=== PATIENT | female | born 1950 | race Caucasian/White ===

== ENCOUNTER 2019-01-19 02:55 | Observation (INO) | payer MEDICARE, BC ==
[2016-12-19 09:57] VITALS: Ht 162.6 cm; Wt 95.7 kg
[~2019-01-19] VITALS: Ht 162.6 cm; Wt 95.7 kg
[2019-01-19] VITALS (12 sets, daily range): BP systolic 115–182; BP diastolic 67–101
[~2019-01-19 02:55] MED LIST: ACE650S PO; ASPI-1471 PO; ASPI-757 PO; ATEN-1 PO; CELE-1 PO; CHOL100058 PO; CYA1000 PO; DIA5 PO; DYA PO; ENO40I SQ; ENOX40DI8 SQ; ESOM20CA31 PO; ESOM40CA42 PO; EST3 PO; ESTR-33 PO; FERG324 PO; FEXO-67 PO; FISH OIL1 CAP PO; FLUT1AER INH; GARL1CAP11 PO; HYDR-318 PO; IBUP-1455 PO; IBUP-1687 PO; LIS10 PO; LOR7.5/325 PO; LOSA25TA57 PO; LUTE1CAP4 PO; MEC125 PO; MED25 PO; MEDR2.5T29 PO; MELO-205 PO; METH-280 PO; MOM PO; MULT-820 PO; MULT1TAB64 PO; NEBI10TA4 PO; OCU PO; OMEP-125 PO; OSTEO BIFLEX; PER PO; POTA99TA6 PO; SPIR50TA30 PO; TRIA1CAP85 PO; [UNRECOGNIZED DRUG - CODE] PO
[2019-01-19] MEDS ORDERED: ceFAZolin(*) 2GM/D5W 50ML 50 ML IVPB ONE (06:00)
[2019-01-19] MEDS ORDERED: LIDOCAINE/SOD BICARB 8.4% SYR ID ONE (06:00)
[2019-01-19] MEDS ORDERED: NORMOSOL R SOLN(*) 1000 ML BAG 1,000 ML IV PRN (06:00)
[2019-01-19] MEDS ORDERED: MIDAZOLAM 2 MG/2 ML VIAL IVP PRN (06:00)
[2019-01-19] MEDS ORDERED: fentaNYL CITR 250 MCG/5 ML AMP ONE (10:09)
[2019-01-19] MEDS ORDERED: PROPOFOL EMUL(*) 10MG/ML 20 ML 20 ML ONE (10:10)
[2019-01-19] MEDS ORDERED: LIDOCAINE MPF 1% 5 ML VIAL ONE (10:10)
[2019-01-19] MEDS ORDERED: ONDANSETRON 4 MG/2 ML VIAL ONE (10:10)
[2019-01-19] MEDS ORDERED: DEXAMETHASONE SOD PHOS 10MG/ML ONE (10:10)
[2019-01-19] MEDS: ACETAMINOPHEN 500 MG TAB PO ONE ×2 (10:25→10:29)
[2019-01-19] MEDS: PREGABALIN 150 MG CAPSULE PO ONE ×2 (10:25→10:29)
[2019-01-19] MEDS ORDERED: KETAMINE HCL 200 MG/20 ML MDV ONE (11:36)
[2019-01-19] MEDS ORDERED: SUGAMMADEX SOD 200 MG/2 ML SDV ONE (13:00)
[2019-01-19] MEDS ORDERED: ROCURONIUM BROM 10 MG/ML 5 ML ONE (14:54)
[2019-01-19] MEDS ORDERED: LABETALOL HCL 25 MG/5 ML SYRINGE ONE (15:14)
[2019-01-19] MEDS ORDERED: NS 0.9% IRRIGATION 1000ML PLCT IR ONE (15:25)
[2019-01-19] MEDS ORDERED: PROPOFOL(*)1000 MG/100 ML VIAL 100 ML ONE (15:34)
[2019-01-19] MEDS ORDERED: NS(*) 0.9% 100 ML BAG 100 ML ONE (15:43)
[2019-01-19] MEDS ORDERED: fentaNYL CITR 100 MCG/2 ML AMP ONE ×2 (16:27→17:36)
[2019-01-19] MEDS ORDERED: hydrALAZINE HCL 20 MG/ML VIAL ONE (16:46)
[2019-01-19] MEDS ORDERED: MEPERIDINE HCL 50 MG/ML SDV 50 MG/ML VIAL ONE (17:15)
--- NOTE | 2019-01-19 17:18 | RADIOLOGY IMAGING REPORT ---
FACILITY: [facility] PATIENT NAME: Courtney Mcdermott : 1950 MR: [id number] V: [id number] EXAM DATE: ORDERING PHYSICIAN: REY ROLLINS TECHNOLOGIST: Location: [facility] [place] Patient: Courtney Mcdermott : 1950 Visit/Account:[id number] Date of Sevice: 01/19/2019 Exam type: L-SPINE >4 VIEWS History: L4-L5 DISC HERNIATION Comparison: MR lumbar spine May 14, 2018 Findings: A single cross table lateral intraoperative view of the lumbar spine demonstrates a metallic probe pr ojecting over the posterior spinous process of L4. Sponge marker projects immediately adjacent to th e probe on this intraoperative image. Incidentally noted are extensive spondylotic changes of the jace mbar spine. Incompletely imaged right hip arthroplasties. IMPRESSION: 1. As above Report Dictated By: Armida Loyd MD at 01/19/2019 5:12 PM Report E-Signed By: Armida Loyd MD at 01/19/2019 5:14 PM WSN:[email or web address]
[2019-01-19] MEDS ORDERED: ONDANSETRON 4 MG/2 ML VIAL IVP PRN (18:05)
[2019-01-19] MEDS ORDERED: DIAZEPAM 5 MG TAB PO PRN (18:05)
[2019-01-19] MEDS ORDERED: LR(*) 1000 ML BAG 1,000 ML IV PRN (18:05)
[2019-01-19] MEDS ORDERED: ACETAMINOPHEN 500 MG TAB PO PRN (18:05)
[2019-01-19] MEDS ORDERED: diphenhydrAMINE 25 MG CAP PO PRN (18:05)
[2019-01-19] MEDS ORDERED: oxyCODONE HCL 5 MG CAP PO PRN (18:05)
[2019-01-19] MEDS ORDERED: MAGNESIUM HYDROXIDE* 30ML UDCP PO PRN (18:05)
[2019-01-19] MEDS ORDERED: BISACODYL 10 MG SUPP PR PRN (18:05)
[2019-01-19] MEDS ORDERED: APAP/HYDROCODONE 325/5 TAB PO PRN (18:05)
[2019-01-19] MEDS ORDERED: HYDROmorphone HCL 2 MG/ML SDV IVP PRN (18:05)
[2019-01-19] MEDS ORDERED: BENZOCAINE/MENTHOL 1 EACH LOZG PO PRN (18:05)
[2019-01-19] MEDS ORDERED: FLUSH 10 ML SYR IVP PRN (18:05)
[2019-01-19] MEDS ORDERED: ACETAMINOPHEN(*)1000 MG/100 ML 100 ML IVPB PRN (18:05)
[2019-01-19] MEDS ORDERED: VASOPRESSIN 20 UNIT/ML VIAL ONE (18:10)
[2019-01-19] MEDS ORDERED: PROPOFOL EMUL(*) 10MG/ML 20 ML 0 ML ONE (18:24)
--- NOTE | 2019-01-19 19:29 | Hospitalist Progress Note ---
Subjective Progress Notes Subjective Patient seen post-op. Reviewed PMHx (HTN) and medications (Bystolic, losartan). At persent she reports significant surgical site pain. She denies any CP/SOB. She has had some mild nausea. Physical Exam Vital Signs Date Time Temp Pulse Resp B/P (MAP) Pulse Ox O2 Delivery O2 Flow Rate FiO2 01/19/19 18:20 97.8 64 12 136/101 (113) 96 Nasal Cannula 3.0 General Appearance: Alert, Awake Cardiovascular: Regular Rate and Rhythm Respiratory: Clear to Auscultation Assessment and Plan Problems: (1) Hypertension Status: Chronic Assessment & Plan: Monitor BPs. Continue Bystolic and losartan with parameters. (2) GERD (gastroesophageal reflux disease) Status: Chronic Assessment & Plan: Continue PPI therapy. (3) MVP (mitral valve prolapse) Status: Chronic RAE MTZ MD Jan 19, 2019 19:29
[2019-01-19] MEDS: DOCUSATE SODIUM 100 MG CAP PO SCH (20:20)
[2019-01-19] MEDS: NEBIVOLOL HCL 5 MG TAB PO SCH (20:20)
[2019-01-19] MEDS ORDERED: NS(*) 0.9% 250 ML BAG 250 ML ONE (22:54)
[2019-01-19] MEDS: ceFAZolin(*) 2GM/D5W 50ML 50 ML IVPB SCH (22:56)
[2019-01-20] VITALS: BP 143/68
[2019-01-20 01:00] VITALS: BP 131/65
--- NOTE | 2019-01-20 05:26 | OPERATIVE REPORT 1 ---
EVENT DATE: January 19, 2019 SURGEON: Rigoberto Gonzales MD ANESTHESIOLOGIST: Zain Upton MD ANESTHESIA: General endotracheal anesthesia. TISSUE TECHNOLOGIST: Doc Ravi PA-C PREOPERATIVE DIAGNOSIS L4-L5 spinal stenosis with right greater than left leg pain and neurogenic claudication. POSTOPERATIVE DIAGNOSIS L4-L5 spinal stenosis with right greater than left leg pain and neurogenic claudication. PROCEDURE PERFORMED L4-L5 laminectomy. INTRAVENOUS FLUIDS 1200 mL. ESTIMATED BLOOD LOSS 80 mL. IMPLANTS None. SPECIMENS None. DRAINS None. COMPLICATIONS None. DISPOSITION Postanesthesia care unit. INDICATIONS FOR SURGERY Ms. Mcdermott is a 68-year-old female who is referred to me with bilateral buttock and radiating left greater than right leg pain. She had pain, numbness and tingling in the dorsal and plantar surfaces of the left foot, as well as radiating down the anterolateral aspect of the lower leg. She had a decreased walking tolerance secondary to heaviness and tiredness in her legs, and would walk leaning forward on a cart for some improvement. Physical therapy helped initially but then no longer, and she had multiple trials of injections, none of which gave her any sustained relief. Her physical examination was significant for normal strength and sensation, negative straight leg raising tests bilaterally, and intact sensation in all dermatomal distributions. Imaging studies included x-rays and an MRI that showed a slight anterolisthesis at L4 on L5 that was not mobile. There was facet hypertrophy, broad-based disc bulging and ligamentum flavum thickening resulting in bilateral lateral recess stenosis at L4-L5 and some foraminal stenosis at that level as well. Review of old records revealed that bilateral L5 epidural steroid injections gave the patient a couple of days' worth of complete relief of her symptoms. Secondary to ongoing symptoms and failure of nonsurgical care, Ms. Mcdermott was offered and elected to undergo L4-L5 laminectomy. Prior to surgery, I explained in detail to the patient the possible risks of surgery, including bleeding, infection, damage to surrounding structures, persistent and/or worsening pain, need for further surgery, spinal fluid leak, meningitis, nerve root injury, , blindness, sexual dysfunction, autonomic nervous system dysfunction, as well as other unforeseen medical and surgical complications. An understanding that in general, spinal surgery is more predictive at improving extremity discomfort than axial spine pain was stressed. DESCRIPTION OF PROCEDURE On the day of surgery, the patient was met in the preoperative hold area, and all questions were answered. The operative site was identified and marked by myself. The patient was brought in good condition to the operating room, and after succumbing to anesthesia, was positioned in the prone position on a Jax table. All bony protuberances and soft tissues were well padded in standard fashion. Care was taken to maintain appropriate perfusion pressures during anesthesia. Preoperative antibiotics were administered according to appropriate timing schedule. At the conclusion of the procedure, sponge and needle counts were correct x2. A final time-out was undertaken by members of the operating team to confirm correct patient, correct levels and correct surgery. The patient was then prepped and draped in the standard sterile orthopedic fashion. A vertical incision was made overlying the intended surgical levels, and sharp dissection was carried out down to the posterior elements. Soft tissues were elevated off the posterior elements in a subperiosteal manner, and a lateral radiograph was obtained to confirm the appropriate spinal level. Self-retaining retractors were placed and distracted, and the spinous process of L4 was removed with a Leksell rongeur. The lamina was thinned down the midline with a combination of a Leksell rongeur and a high-speed bur. The canal was then entered using an angled Jordan curette to undermine the superior insertion of the ligamentum flavum from the inferior aspect of the L4 lamina. A Nelson elevator was used to separate any dural adhesions from surrounding bone and soft tissues prior to use of the Kerrison punch. A combination of a high-speed bur and a #3 and #4 Kerrison was then used to perform midline decompression. Once this was completed, bilateral lateral recess decompressions were performed using a #3 and #4 Kerrison rongeur. I decompressed the L5 nerve root and the foramina bilaterally as well. At the conclusion of the decompression, a Nelson elevator was passed down along the lateral recesses as well as out the foramina of the involved nerve roots, and an excellent decompression had been achieved. Liquid Gelfoam and surgical patties were used to control remaining bleeders in the lateral recesses, and the wound was irrigated with copious sterile saline solution. The wound was then closed in layers using interrupted sutures for the deep fascia, inverted interrupted sutures for the subcutaneous tissue, and then a running subcuticular skin stitch. Sponge and needle counts were correct x2. POSTOPERATIVE CARE PLAN Ms. Mcdermott will remain in the hospital overnight and will likely be discharged home postop day 1, once she meets discharge criteria. She will follow up with me in two weeks for wound check and examination. TODD
[2019-01-20] MEDS: ceFAZolin(*) 2GM/D5W 50ML 50 ML IVPB SCH ×2 (07:00→07:20)
[2019-01-20 07:43] VITALS: BP 134/67
[2019-01-20] MEDS: DOCUSATE SODIUM 100 MG CAP PO SCH (08:46)
[2019-01-20] MEDS: NEBIVOLOL HCL 5 MG TAB PO SCH (08:46)
[2019-01-20] MEDS ORDERED: LOSARTAN POTASSIUM 50 MG TAB PO SCH (09:00)
[2019-01-20] MEDS ORDERED: PANTOPRAZOLE SOD 40 MG TABEC PO SCH (09:00)
[2019-01-20] MEDS ORDERED: LOR5/325 PO (09:06)
[2019-01-20] MEDS ORDERED: DOCU240C84 PO (09:06)
--- NOTE | 2019-01-20 09:08 | NUR ---
Physical Therapy Impression PT eval complete. Pt met all PT goals with initial visit and is safe to d/c home from a mobility stand point when medically appropriate. Pt is Reol for bed mobility, transfers and gait. With PT instruction for log roll technique. SBA for stair negotiation with no difficulties noted. No further PT visits planned. Physical Therapy Goals 1: Pt to complete bed mobility with Roel 2: Pt to complete transfers with Roel 3: Pt to ambulate 150' with Roel 4: Pt to asc/desc 6 stairs with SBA Patient's Goals
--- NOTE | 2019-01-20 13:43 | Hospitalist Progress Note ---
Subjective Progress Notes Subjective She was admitted after back surgery. She has no complaints this morning. She had no acute events overnight. Patient Complains of: Cardiovascular: No: Chest Pain Respiratory: No: Shortness of Breath Physical Exam Vital Signs Date Time Temp Pulse Resp B/P (MAP) Pulse Ox O2 Delivery O2 Flow Rate FiO2 01/20/19 07:44 95 Room Air 01/20/19 07:43 98.1 58 134/67 (89) 01/20/19 01:00 0.5 01/19/19 18:20 12 Intake and Output 01/20/19 01:00 Intake Total 2000 ml Balance 2000 ml Intake Oral 200 ml IV Total 1800 ml # Voids 1 General Appearance: Alert, Awake, No Acute Distress, Afebrile Neuro: No Gross deficits Cardiovascular: Regular Rate and Rhythm Respiratory: No Respiratory Distress, Clear to Auscultation GI: Soft and Non-Tender Psych: Alert & Oriented X3, Appropriate Mood & Affect Assessment and Plan Problems: (1) Hypertension Status: Chronic Assessment & Plan: Monitor BPs. Continue Bystolic and losartan with parameters. (2) GERD (gastroesophageal reflux disease) Status: Chronic Assessment & Plan: Continue PPI therapy. (3) MVP (mitral valve prolapse) Status: Chronic Exam Sepsis Risk: No Definite Risk Problem Qualifiers (1) Hypertension: Hypertension type: essential hypertension Qualified Codes: I10 - Essential (primary) hypertension MERVIN BROOKE Jan 20, 2019 13:43
== END 2019-01-20 09:18 | disposition home or self-care (01) ==
LOC: OR 02:55 → INTOOBSV 18:18 → MED 18:18
PROVIDERS: ADMIT Orthopaedic Surgery; ATTEND Orthopaedic Surgery
DX: M48.061 Spinal stenosis, lumbar region without neurogenic claudication (principal)
CPT/HCPCS: 63030; 72020; 97161; A9270; G0378; J0360; J1100; J2001; J2175; J2250; J2405; J2704; J3010; J3490; J7050; J0690